=== PATIENT | male | born 1970 | race Two or more races ===

== ENCOUNTER 2023-01-02 12:57 | Emergency (ER) | payer OTHER ==
[~2023-01-02] VITALS: Ht 177.8 cm; Wt 140.0 kg
[2023-01-02] VITALS (14 sets, daily range): BP systolic 156–210; BP diastolic 89–108; PULSE 78–99; RESP 22–33; TEMP 98.2–98.6; O2SAT 78
[2023-01-02] MEDS ORDERED: NITROGLYCERIN 50MG PREMIX 250 ML IV NR (13:15)
[2023-01-02] MEDS ORDERED: ALBUTEROL (0.083%) 2.5MG/3ML NEB HHN ONE (13:15)
[2023-01-02] MEDS ORDERED: NITROGLYCERIN 50MG PREMIX 250 ML IV ONE (13:15)
[2023-01-02] MEDS ORDERED: NITROGLYCERIN 0.1MG/HR PATCH TOP ONE (13:15)
[2023-01-02] MEDS ORDERED: NITROGLYCERIN 50MG PREMIX 250 ML IV PRN (13:30)
[2023-01-02 14:00] LABS: CHLORIDE 102 mEq/L (98-107); INDEX HEMOLYSI 1 (1-3); INDEX ICTERIC 1 (1-4); INDEX LIPEMIC 1 (1-3); POTASSIUM 5.1 mEq/L (3.5-5.1); SODIUM 138 mEq/L (136-145)
[2023-01-02 14:10] LABS: ALANINE AMINOTRANSFERASE 26 IU/L (13-61); ASPARTATE AMINOTRANSFERASE 9 IU/L (15-37); BILIRUBIN TOTAL 0.6 mg/dL (0.1-1.0); CARBON DIOXIDE 20 mEq/L (21-32); GLUCOSE 257 mg/dL (70-105); NT PRO B-TYPE NATRIURETIC PEP 9563 pg/mL (5-125); PROTEIN TOTAL 8.8 g/dL (6.0-8.3); TROPONIN I HIGH SENSITIVITY 62 ng/L (<78)
[2023-01-02 14:20] LABS: CREATININE 16.9 mg/dL (0.6-1.3); UREA NITROGEN BLOOD 81 mg/dL (7-21)
[2023-01-02 14:49] LABS: BASOPHILS % 0.5 % (0.0-2.0); EOSINOPHILS % 0.6 % (0.0-5.0); HEMATOCRIT. 31.2 % (42.0-52.0); HEMOGLOBIN. 9.4 g/dL (14.0-18.0); LYMPHOCYTES % 10.5 % (20.0-50.0); MEAN CORPUSCULAR HEMOGLOBIN 26.6 pg (28.0-32.0); MEAN CORPUSCULAR VOLUME 88.7 fL (80.0-94.0); MEAN PLATELET VOLUME 7.8 fl (7.4-10.4); MONOCYTES % 5.6 % (2.0-8.0); NEUTROPHILS % 82.8 % (40.0-76.0); PLATELET 361 x1000/uL (130-400); RED BLOOD CELL COUNT 3.52 mill/uL (4.7-6.1); WHITE BLOOD COUNT 15.5 x1000/uL (4.5-11.0)
[2023-01-02 14:51] LABS: DIFFERENTIAL COMMENT 1
[2023-01-02 14:51] LABS: BG BASE EXCESS -6.4 mmol/L (-2.0-2.0); BG CARBOXYHEMOGLOBIN 0.2 % (0.5-1.5); BG DEOXYHEMOGLOBIN 2.6 % (0.0-5.0); BG FRACTION INSPIRED OXYGEN 80; BG HCO3 ACT 20.5 mmol/L (22.0-26.0); BG METHEMOGLOBIN 0.3 % (0.0-1.5); BG OXYGEN SATURATION 97.4 % (92.0-98.5); BG OXYHEMOGLOBIN 96.9 % (94.0-97.0); BG PH 7.257 (7.350-7.450); BG PO2 130.2 mmHg (75.0-100.0); BG SAMPLE SITE RIGHT RADIAL; BG TOTAL HEMOGLOBIN 9.6 g/dL (12.0-18.0); BG TOTAL RESPIRATORY RATE 35 b/min; BG VENT MODE MASK - BIPAP
[2023-01-02 14:52] LABS: ADD RBC MORPHOLOGY YES
[2023-01-02 15:47] LABS: ANISOCYTOSIS 2+; PLATELET ESTIMATE NORMAL
== END 2023-01-02 22:18 | disposition left against medical advice (07) ==
LOC: ER 12:57 → EDBD 12:57 → EDBEDREQ 14:30 → EDBEDREQSVC 15:29 → CANBEDREQ 21:15 → ER 22:18
DX: J81.1 Chronic pulmonary edema (principal); I10 Essential (primary) hypertension; N18.6 End stage renal disease; E87.70 Fluid overload, unspecified
CPT/HCPCS: 80053; 83880; 85025; 84484; 36415; 71045; 94640; 82805; 82375; 94660; 93005; 96374; 99291; 36600; J3490; Z7610 ×2; 90935